=== PATIENT | male | born 1985 | race Caucasian/White ===

== ENCOUNTER 2019-03-29 00:21 | Emergency (ER) | payer MEDICAID | END 2019-03-29 01:35 | disposition home or self-care (01) | LOC: FTE 00:21 | DX: S92.511A Displaced fracture of proximal phalanx of right lesser toe(s), initial encounter for closed fracture (principal); F17.210 Nicotine dependence, cigarettes, uncomplicated; W22.03XA Walked into furniture, initial encounter | CPT/HCPCS: 73660; 99283-25 ==